=== PATIENT | male | born 1955 | race Two or more races ===

== ENCOUNTER → 2021-07-20 12:40 | Outpatient (CLI) | payer OTHER | END | disposition home or self-care (01) | LOC: RAD 12:40 | PROVIDERS: ATTEND Orthopaedic Surgery | DX: M25.562 Pain in left knee (principal) ==

== ENCOUNTER 2021-12-11 07:24 | Outpatient (CLI) | payer OTHER | END 2021-12-11 07:35 | disposition home or self-care (01) | LOC: LAB 07:24 | PROVIDERS: ATTEND Orthopaedic Surgery | DX: D64.9 Anemia, unspecified (principal); N39.0 Urinary tract infection, site not specified; A49.02 Methicillin resistant Staphylococcus aureus infection, unspecified site; E11.9 Type 2 diabetes mellitus without complications; I10 Essential (primary) hypertension; I49.9 Cardiac arrhythmia, unspecified; Z76.89 Persons encountering health services in other specified circumstances ==

== ENCOUNTER 2021-12-22 08:35 | Inpatient (IN) | payer OTHER ==
[~2021-12-22] VITALS: Ht 172.7 cm; Wt 74.8 kg
[2021-12-26] MEDS ORDERED: GABAPENTIN100 M2 (13:23)
[2021-12-26] MEDS ORDERED: CELECOXIB200 MG (13:23)
== END 2021-12-27 16:57 | DRG 470 ==
LOC: SURG 12-25 07:00 → SURH 12-25 10:12 → O/R 12-25 10:12 → CIR.AMB 12-25 14:49 → SURG 12-25 14:50 → EDSTATUS 12-25 14:50 → SURH 12-25 20:07
PROVIDERS: ADMIT Orthopaedic Surgery; ATTEND Orthopaedic Surgery
PROC: 3E0F7SF Introduction of Other Gas into Respiratory Tract, Via Natural or Artificial Opening (ICD-10-PCS; 2021-12-25)
PROC: 0SRD069 Replacement of Left Knee Joint with Oxidized Zirconium on Polyethylene Synthetic Substitute, Cemented, Open Approach (ICD-10-PCS; principal; 2021-12-25 07:00)
DX: M17.12 Unilateral primary osteoarthritis, left knee (principal); M21.062 Valgus deformity, not elsewhere classified, left knee; M85.662 Other cyst of bone, left lower leg

== ENCOUNTER 2022-01-02 10:00 | Outpatient (CLI) | payer OTHER | END 2022-01-02 13:45 | disposition home or self-care (01) | LOC: LAB 10:00 | DX: D64.9 Anemia, unspecified (principal); D69.6 Thrombocytopenia, unspecified ==

== ENCOUNTER 2022-01-19 11:46 | Emergency (ER) | payer OTHER ==
[~2022-01-19] VITALS: Ht 172.7 cm; Wt 72.6 kg
[~2022-01-19 11:46] MED LIST: CELECOXIB200 MG; GABAPENTIN100 M2
== END 2022-01-19 14:18 | disposition home or self-care (01) ==
LOC: ER 11:46
DX: T84.84XA Pain due to internal orthopedic prosthetic devices, implants and grafts, initial encounter (principal); Z96.652 Presence of left artificial knee joint

== ENCOUNTER → 2022-11-20 11:08 | Outpatient (CLI) | payer OTHER | END | disposition home or self-care (01) | LOC: LAB 11:08 | PROVIDERS: ATTEND Orthopaedic Surgery | DX: E55.9 Vitamin D deficiency, unspecified (principal); M85.9 Disorder of bone density and structure, unspecified; E56.1 Deficiency of vitamin K ==

== ENCOUNTER 2022-11-27 13:48 | Outpatient (CLI) | payer OTHER | END 2022-11-27 13:50 | disposition home or self-care (01) | LOC: NUCLEAR 13:48 | PROVIDERS: ATTEND Orthopaedic Surgery | DX: M81.0 Age-related osteoporosis without current pathological fracture (principal) ==

== ENCOUNTER 2025-02-08 14:43 | Emergency (ER) | payer OTHER ==
[~2025-02-08] VITALS: Ht 167.6 cm; Wt 65.8 kg
[2025-02-08] MEDS ORDERED: DEXAMETHASONE SODIUM PHOSPHATE 4 MG/ML VIAL ONE (18:11)
[2025-02-08] MEDS ORDERED: KETOROLAC TROMETHAMINE 30 MG VIAL ONE (18:11)
[2025-02-08] MEDS ORDERED: DEXAMETHASONE SODIUM PHOSPHATE 4 MG/ML VIAL IM ONE (18:15)
[2025-02-08] MEDS ORDERED: KETOROLAC TROMETHAMINE 30 MG VIAL IM ONE (18:15)
== END 2025-02-08 19:09 | disposition home or self-care (01) ==
LOC: ER 14:43
DX: M25.532 Pain in left wrist (principal)
CPT/HCPCS: 73110; 96372; 99283; J1100; J1885